=== PATIENT | female | born 1995 | race Caucasian/White ===

== ENCOUNTER 2018-01-30 09:37 | Day surgery (SDC) | payer OTHER ==
[2018-01-29 15:22] VITALS: BMI 16.9
[2018-01-30] MEDS ORDERED: PROPOFOL 20 ML ONE ×2 (10:00)
[2018-01-30 15:25] VITALS: BP 108/72; PULSE 50; TEMP 98.1
== END 2018-01-30 13:24 | disposition home or self-care (01) ==
LOC: FASU-ENDO 09:37
PROVIDERS: ATTEND Internal Medicine Gastroenterology
PROC: 0DJD8ZZ Inspection of Lower Intestinal Tract, Via Natural or Artificial Opening Endoscopic (ICD-10-PCS; principal; 2018-01-30 12:14)
DX: K62.5 Hemorrhage of anus and rectum (principal); K64.8 Other hemorrhoids; Q43.8 Other specified congenital malformations of intestine
CPT/HCPCS: 84703

== ENCOUNTER 2018-09-19 22:30 | Emergency (ER) | payer OTHER ==
[2018-09-19 22:37] VITALS: BP 94/54; PULSE 68; TEMP 98.8; BMI 16.1
[2018-09-19] MEDS ORDERED: KETOROLAC TROMETHAMINE 60 MG/2 ML VIAL IM ONE (23:54)
[2018-09-19] MEDS ORDERED: KETOROLAC TROMETHAMINE 30 MG/1 ML VIAL ONE (23:56)
--- NOTE | 2018-09-20 00:26 | PDOC ---
Documentation entered by Laury Reveles SCRIBE, acting as scribe for Estela Prajapati MD. Estela Prajapati MD: This documentation has been prepared by the Abdirizak valentino Brenda, SCRIBE, under my direction and personally reviewed by me in its entirety. I confirm that the documentation accurately reflects all work, treatment, procedures, and medical decision making performed by me. History of Present Illness - General Chief Complaint: Back Pain Stated Complaint: BACK PAIN History Source: Patient Exam Limitations: No Limitations - History of Present Illness Initial Comments: 09/20/18 00:01 The patient is a 23 year old female, with a significant PMH of who presents to the emergency department with 2 days of upper back pain. The patient reports having chronic intermittent muscle spasms for a few months. She states having severe episodes of constant alternating hot pain or stabbing pain, for the past 2 days. The patient reports getting deep tissue massage therapy, where her pain decreased but increased again. She reports trying [id number] pain medications and patches to no avail. 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 The patient denies trauma and neck pain. Denies chest pain, shortness of breath , headache and dizziness. Denies fever, chills, nausea, vomiting, diarrhea and constipation. Allergies: Amoxicillin Social history: No tobacco use. No alcohol use. No drug use. PCP: Dr. Ha Kaye Past History - Past Medical History Allergies/Adverse Reactions: Allergies Allergy/AdvReac Type Severity Reaction Status Date / Time amoxicillin Allergy Severe Rash Verified 01/30/18 10:50 Home Medications: Ambulatory Orders Norethindrone-E.estradiol-Iron [Lo Loestrin Fe 1-10 Tablet] 1 tab PO DAILY 01/29 Spironolactone 100 mg PO DAILY 01/29/18 Diclofenac Sodium [Voltaren -] 75 mg PO BID PRN #14 tablet. 09/19/18 Anemia: No Asthma: No Cancer: No Cardiac Disorders: No CVA: No COPD: No CHF: No Dementia: No Diabetes: No GI Disorders: (CONSTIPATION,STOMACH PAIN) Disorders: No HTN: No Hypercholesterolemia: No Liver Disease: No Seizures: No Thyroid Disease: No - Surgical History Abdominal Surgery: No Appendectomy: No Cardiac Surgery: No Cholecystectomy: No Lung Surgery: No Neurologic Surgery: No Orthopedic Surgery: No - Suicide/Smoking/Psychosocial Hx Smoking History: Never smoked Have you smoked in the past 12 months: No Hx Alcohol Use: No (RARELY) Drug/Substance Use Hx: No Substance Use Type: None Hx Substance Use Treatment: No Review of Systems - Review of Systems Able to Perform ROS?: Yes Comments:: 09/20/18 00:01 GENERAL/CONSTITUTIONAL: No fever or chills. No weakness. HEAD, EYES, EARS, NOSE AND THROAT: No change in vision. No ear pain or discharge. No sore throat. CARDIOVASCULAR: No chest pain or shortness of breath. RESPIRATORY: No cough, wheezing, or hemoptysis. GASTROINTESTINAL: No nausea, vomiting, diarrhea or constipation. GENITOURINARY: No dysuria, frequency, or change in urination. MUSCULOSKELETAL: +Upper back pain + Muscle spasms. No joint or muscle swelling.No neck pain. SKIN: No rash NEUROLOGIC: No headache, vertigo, loss of consciousness, or change in strength/ sensation. ENDOCRINE: No increased thirst. No abnormal weight change. HEMATOLOGIC/LYMPHATIC: No anemia, easy bleeding, or history of blood clots. ALLERGIC/IMMUNOLOGIC: No hives or skin allergy. *Physical Exam - Vital Signs Last Vital Signs Temp Pulse Resp BP Pulse Ox 98.8 F 68 16 94/54 L 99 09/19/18 22:32 09/19/18 22:32 09/19/18 22:32 09/19/18 22:32 09/19/18 22:32 - Physical Exam Comments: 09/20/18 00:01 GENERAL: Awake, alert, and fully oriented, in no acute distress HEAD: No signs of trauma EYES: PERRLA, EOMI, sclera anicteric, conjunctiva clear ENT: Auricles normal inspection, hearing grossly normal, nares patent, oropharynx clear without exudates. Moist mucosa NECK: Normal ROM, supple, no lymphadenopathy, JVD, or masses LUNGS: Breath sounds equal, clear to auscultation bilaterally. No wheezes, and no crackles HEART: Regular rate and rhythm, normal S1 and S2, no murmurs, rubs or gallops BACK: +Moderate tenderness +Palpable muscle spasm of muscles medial to the left scapula ABDOMEN: Soft, nontender, normoactive bowel sounds. No guarding, no rebound. No masses EXTREMITIES: Normal range of motion, no edema. No clubbing or cyanosis. No cords, erythema, or tenderness NEUROLOGICAL: Cranial nerves II through XII grossly intact. Normal speech, normal gait SKIN: Warm, Dry, normal turgor, no rashes or lesions noted. Medical Decision Making - Medical Decision Making As noted above, this 23-year-old woman presents with a few month history of intermittent pain just medial to her left scapula. No history of direct trauma to the area and she has had relief in the past after obtaining of "deep tissue massage". She denies shortness of breath/anterior chest pain/fever/cough. She cannot recall any activity/sport that she is engaged in, resulting in this pain. 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 She has no previous history of chronic postural issues or spinal developmental problems such as scoliosis or kyphosis. Exam as noted. Left-sided rhomboid muscle group tender and spasmed on direct palpation. No other abnormalities present. Importance of proper posture, especially during chronic computer keyboard/ monitor use, discussed with the patient, along with possibility of obtaining evaluation and treatment by physical therapy. According to patient's mother, the family has been seen by orthopedic group and is aware that is a spinal specialist. Referral information given for , with whom she should follow-up within the next week. Meanwhile, the patient received Toradol 30 mg IM as well as prescription for diclofenac 75 mg twice a day( as needed to be taken with food) sent to her pharmacy. She can also use local warmth to the area, including topical patches . *DC/Admit/Observation/Transfer Diagnosis at time of Disposition: Periscapular pain - Discharge Dispostion Disposition: HOME Condition at time of disposition: Stable - Prescriptions Prescriptions: Diclofenac Sodium [Voltaren -] 75 mg PO BID PRN #14 tablet.dr OLIVO Reason: Back Pain - Referrals Referrals: Ld Kaye [Primary Care Provider] - Larry Flores MD [Staff Physician] - 1 week - Patient Instructions Printed Discharge Instructions: Thoracic Back Pain Additional Instructions: Try to maintain proper posture at all times while sitting at computer Avoid strenuous upper body exercises for the next several days Motrin/Aleve/Tylenol as needed for mild pain Diclofenac 75 mg up to twice a day as needed for moderate to severe pain Can use local warmth and/or topical patches([id number]) as directed Call 's office in the AM to arrange follow-up within the next week - Post Discharge Activity
== END 2018-09-20 00:11 | disposition home or self-care (01) ==
LOC: FER 22:30
PROC: 3E0233Z Introduction of Anti-inflammatory into Muscle, Percutaneous Approach (ICD-10-PCS; principal; 2018-09-19)
DX: M25.512 Pain in left shoulder (principal)
CPT/HCPCS: 99282-25